=== PATIENT | female | born 1995 | race Caucasian/White ===

== ENCOUNTER 2019-01-29 18:20 | Inpatient (IN) | payer OTHER, MEDICAID ==
[2019-01-29 22:58] LABS: ADD UMIC YES; UR ASCORBIC ACID NEGATIVE (NEGATIVE); UR BACTERIA FEW /HPF (NONE SEEN); UR BILIRUBIN (Dip) NEGATIVE (NEGATIVE); UR BLOOD (Dip) NEGATIVE (NEGATIVE); UR CALCIUM OXALATE CRYSTAL FEW /HPF (NONE SEEN); UR CLARITY SLIGHTLY CLOUDY (CLEAR); UR COLOR AMBER (YELLOW); UR GLUCOSE (Dip) NEGATIVE (NEGATIVE); UR KETONES (Dip) NEGATIVE (NEGATIVE); UR LEUKOCYTE ESTERASE (Dip) NEGATIVE Leu/ul (NEGATIVE); UR MUCUS MANY /HPF (NONE SEEN); UR NITRITE (Dip) NEGATIVE (NEGATIVE); UR RBC 5 /HPF (0-5); UR SPECIFIC GRAVITY (Dip) 1.026 (1.003-1.030); UR SQUAMOUS EPITHELIAL CELL FEW /HPF (FEW); UR TOTAL PROTEIN (Dip) 1+ mg/dl (NEGATIVE); UR UROBILINOGEN (Dip) NEGATIVE (NEGATIVE); UR WBC 3 /HPF (0-5)
[2019-01-30] MEDS: LACTATED RINGER'S 1,000 ML IV ×4 (01:03→19:06)
[2019-01-30] MEDS: CEFAZOLIN 2 GM/50 ML (PMX) 50 ML IVPB (01:04)
[2019-01-30] MEDS: BETAMET NA PHOS/AC(6 MG/ML) 2 ML INJ SYG IM (02:06)
[2019-01-30] MEDS ORDERED: AL HYDROX/MG HYDROX/SIMETH 30 ML CUP PO (03:00)
[2019-01-30] MEDS: NIFEdipine 10 MG CAP PO ×5 (03:21→22:11)
[2019-01-30 07:35] LABS: ADD MAN DIFF? NO
[2019-01-30 07:40] LABS: BASOPHILS % 0.2 % (0.0-2.0); HEMATOCRIT 27.1 % (37.0-47.0); HEMOGLOBIN 9.1 g/dl (12.0-16.0); LYMPHOCYTES # 1.1 10^3/ul (0.8-2.9); LYMPHOCYTES % 8.7 % (15.0-51.0); MEAN CORPUSCULAR HEMOGLOBIN 25.7 pg (29.0-33.0); MEAN CORPUSCULAR HGB CONC 33.6 g/dl (32.0-37.0); MEAN CORPUSCULAR VOLUME 76.6 fl (82.0-101.0); MEAN PLATELET VOLUME 11.2 fl (7.4-10.4); MONOCYTE # 0.3 10^3/ul (0.3-0.9); MONOCYTES % 2.1 % (0.0-11.0); NEUTROPHIL # 11.6 10^3/ul (1.6-7.5); NEUTROPHILS % 88.2 % (39.0-77.0); PLATELET COUNT 221 10^3/UL (140-415); RED BLOOD COUNT 3.54 10^6/ul (4.20-5.40); RED CELL DISTRIBUTION WIDTH 13.2 % (11.5-14.5)
[2019-01-30 07:40] LABS: WHITE BLOOD COUNT 13.1 10^3/ul (4.8-10.8)
[2019-01-30 08:00] LABS: GLUCOSE 116 mg/dl (70-220)
[2019-01-30] MEDS: INSULIN ASPART [NOVOLOG] 3 ML PEN SC ×2 (12:00→22:03)
[2019-01-30] MEDS ORDERED: DEXTROSE 50% 50 ML SYRINGE IV ×2 (17:00)
[2019-01-30] MEDS ORDERED: GLUCOSE GEL 15 GRAM TUBE PO ×2 (17:00)
[2019-01-30] MEDS ORDERED: GLUCAGON 1 MG INJ IM (17:00)
[2019-01-30] MEDS ORDERED: GLUCOSE GEL 15 GRAM TUBE BUCCAL (17:00)
[2019-01-30] MEDS: ACETAMINOPHEN 325 MG TAB PO (21:04)
[2019-01-31] MEDS: NIFEdipine 10 MG CAP PO ×3 (01:00→11:55)
[2019-01-31] MEDS: BETAMET NA PHOS/AC(6 MG/ML) 2 ML INJ SYG IM (02:17)
[2019-01-31] MEDS: LACTATED RINGER'S 1,000 ML IV ×2 (03:06→11:59)
[2019-01-31] MEDS: INSULIN ASPART [NOVOLOG] 3 ML PEN SC ×3 (11:58→20:19)
[2019-01-31] MEDS: MAGNESIUM SULFATE 20 GM/500 ML 500 ML IV (16:12)
[2019-02-01] MEDS: LACTATED RINGER'S 1,000 ML IV ×2 (00:10→10:19)
[2019-02-01 00:54] LABS: MAGNESIUM 4.6 mg/dl (1.7-2.5)
[2019-02-01] MEDS: MAGNESIUM SULFATE 20 GM/500 ML 500 ML IV ×2 (04:29→13:30)
[2019-02-01 08:14] LABS: MAGNESIUM 4.4 mg/dl (1.7-2.5)
[2019-02-01] MEDS: INSULIN ASPART [NOVOLOG] 3 ML PEN SC ×3 (11:50→20:30)
[2019-02-01 13:00] LABS: MAGNESIUM 5.1 mg/dl (1.7-2.5)
== END 2019-02-02 14:29 | disposition home or self-care (01) | DRG 832 ==
LOC: OBT 18:20 → L-D 01-30 01:31 → PP1 01-31 16:05 → L-D 19:35 → OBT 23:25 → L-D 23:25
DX: O24.419 Gestational diabetes mellitus in pregnancy, unspecified control (principal); O26.873 Cervical shortening, third trimester; O30.003 Twin pregnancy, unspecified number of placenta and unspecified number of amniotic sacs, third trimester; O99.013 Anemia complicating pregnancy, third trimester; Z3A.33 33 weeks gestation of pregnancy
CPT/HCPCS: 76815; 76817; 76818; 81001; 82947; 82962; 83735; 85025; 86850; 86900; 86901; 87086

== ENCOUNTER 2019-02-12 18:38 | Inpatient (IN) | payer OTHER ==
[2019-02-12 23:00] LABS: ADD UMIC YES; UR ASCORBIC ACID NEGATIVE (NEGATIVE); UR BACTERIA FEW /HPF (NONE SEEN); UR BILIRUBIN (Dip) NEGATIVE (NEGATIVE); UR BLOOD (Dip) NEGATIVE (NEGATIVE); UR CLARITY SLIGHTLY CLOUDY (CLEAR); UR COLOR AMBER (YELLOW); UR GLUCOSE (Dip) NEGATIVE (NEGATIVE); UR KETONES (Dip) NEGATIVE (NEGATIVE); UR LEUKOCYTE ESTERASE (Dip) 1+ Leu/ul (NEGATIVE); UR MUCUS MANY /HPF (NONE SEEN); UR NITRITE (Dip) NEGATIVE (NEGATIVE); UR RBC 3 /HPF (0-5); UR SPECIFIC GRAVITY (Dip) 1.023 (1.003-1.030); UR SQUAMOUS EPITHELIAL CELL FEW /HPF (FEW); UR TOTAL PROTEIN (Dip) 1+ mg/dl (NEGATIVE); UR UROBILINOGEN (Dip) 1+ mg/dL (NEGATIVE); UR WBC 5 /HPF (0-5)
[2019-02-13] MEDS: LACTATED RINGER'S 1,000 ML IV ×2 (02:25→07:33)
[2019-02-13 03:25] LABS: ADD MAN DIFF? NO
[2019-02-13 03:28] LABS: BASOPHILS % 0.3 % (0.0-2.0); EOSINOPHILS # 0.1 10^3/ul (0.0-0.5); LYMPHOCYTES # 2.1 10^3/ul (0.8-2.9); LYMPHOCYTES % 22.3 % (15.0-51.0); MEAN CORPUSCULAR HEMOGLOBIN 24.8 pg (29.0-33.0); MEAN CORPUSCULAR HGB CONC 32.1 g/dl (32.0-37.0); MEAN CORPUSCULAR VOLUME 77.1 fl (82.0-101.0); MEAN PLATELET VOLUME 11.7 fl (7.4-10.4); MONOCYTE # 0.7 10^3/ul (0.3-0.9); MONOCYTES % 7.4 % (0.0-11.0); NEUTROPHIL # 6.3 10^3/ul (1.6-7.5); NEUTROPHILS % 68.1 % (39.0-77.0); PLATELET COUNT 207 10^3/UL (140-415); RED BLOOD COUNT 3.63 10^6/ul (4.20-5.40)
[2019-02-13 03:28] LABS: WHITE BLOOD COUNT 9.3 10^3/ul (4.8-10.8)
[2019-02-13 03:48] LABS: PROTIME 12.3 Sec (11.9-14.9)
[2019-02-13 03:49] LABS: PARTIAL THROMBOPLASTIN TIME 29.7 Sec (23.0-35.0)
[2019-02-13] MEDS ORDERED: ACCU-CHEK XX (06:00)
[2019-02-13] MEDS ORDERED: PRENATAL VITAMIN PO (09:00)
[2019-02-13 22:04] LABS: RAPID PLASMA REAGIN NONREACTIVE (NR)
== END 2019-02-13 16:11 | disposition home or self-care (01) | DRG 833 ==
LOC: OBT 18:38 → L-D 18:42 → PP1 02-13 11:23 → L-D 19:34
DX: O60.03 Preterm labor without delivery, third trimester (principal); Z3A.35 35 weeks gestation of pregnancy; O30.003 Twin pregnancy, unspecified number of placenta and unspecified number of amniotic sacs, third trimester
CPT/HCPCS: 76815; 76818; 81001; 82962; 85025; 85610; 85730; 86592; 86850; 86900; 86901; 87086

== ENCOUNTER 2019-02-16 13:13 | Outpatient (CLI) | payer OTHER | END 2019-02-16 14:55 | disposition home or self-care (01) | LOC: OBT 13:13 → L-D 13:13 → OBT 14:55 | DX: O30.003 Twin pregnancy, unspecified number of placenta and unspecified number of amniotic sacs, third trimester (principal); O24.419 Gestational diabetes mellitus in pregnancy, unspecified control; Z3A.35 35 weeks gestation of pregnancy | CPT/HCPCS: 76818 ==

== ENCOUNTER 2019-02-19 13:10 | Outpatient (CLI) | payer OTHER | END 2019-02-19 16:05 | disposition home or self-care (01) | LOC: OBT 13:10 → L-D 13:11 → OBT 16:05 | DX: O24.419 Gestational diabetes mellitus in pregnancy, unspecified control (principal); Z3A.36 36 weeks gestation of pregnancy | CPT/HCPCS: 76818 ==

== ENCOUNTER 2019-02-24 14:19 | Outpatient (CLI) | payer OTHER | END 2019-02-24 15:50 | disposition home or self-care (01) | LOC: OBT 14:19 → L-D 14:20 → OBT 15:50 | DX: O30.033 Twin pregnancy, monochorionic/diamniotic, third trimester (principal); Z3A.36 36 weeks gestation of pregnancy | CPT/HCPCS: 76818 ==

== ENCOUNTER 2019-02-26 05:12 | Inpatient (IN) | payer OTHER ==
[2019-02-26] MEDS ORDERED: OXYTOCIN 30 UNITS/LR 500 ML IV ×2 (05:30→10:00)
[2019-02-26] MEDS ORDERED: MISOPROSTOL 200 MCG TAB PR ×2 (05:30→10:00)
[2019-02-26] MEDS ORDERED: METHYLERGONOVINE 0.2 MG INJ IM ×2 (05:30→10:00)
[2019-02-26] MEDS ORDERED: CARBOPROST 250 MCG INJ IM ×2 (05:30→10:00)
[2019-02-26 05:53] LABS: ADD MAN DIFF? NO
[2019-02-26 05:59] LABS: BASOPHIL # 0.1 10^3/ul (0.0-0.1); BASOPHILS % 0.6 % (0.0-2.0); EOSINOPHILS # 0.1 10^3/ul (0.0-0.5); EOSINOPHILS % 0.6 % (0.0-7.0); HEMATOCRIT 29.8 % (37.0-47.0); HEMOGLOBIN 9.7 g/dl (12.0-16.0); LYMPHOCYTES # 2.6 10^3/ul (0.8-2.9); MEAN CORPUSCULAR HEMOGLOBIN 24.6 pg (29.0-33.0); MEAN CORPUSCULAR HGB CONC 32.6 g/dl (32.0-37.0); MEAN CORPUSCULAR VOLUME 75.4 fl (82.0-101.0); MEAN PLATELET VOLUME 11.3 fl (7.4-10.4); MONOCYTE # 0.7 10^3/ul (0.3-0.9); MONOCYTES % 7.4 % (0.0-11.0); NEUTROPHIL # 6.4 10^3/ul (1.6-7.5); NEUTROPHILS % 64.4 % (39.0-77.0); PLATELET COUNT 258 10^3/UL (140-415); RED BLOOD COUNT 3.95 10^6/ul (4.20-5.40); RED CELL DISTRIBUTION WIDTH 14.5 % (11.5-14.5)
[2019-02-26] MEDS: LACTATED RINGER'S 1,000 ML IV ×3 (06:05→23:04)
[2019-02-26 06:17] LABS: INR 0.89; PROTIME 12.1 Sec (11.9-14.9); PT RATIO 0.9
[2019-02-26 06:18] LABS: PARTIAL THROMBOPLASTIN TIME 31.5 Sec (23.0-35.0)
[2019-02-26 06:18] LABS: GLUCOSE 86 mg/dl (70-220)
[2019-02-26] MEDS ORDERED: morphine SULFATE/PF (10 MG/10 ML) INJ (07:30)
[2019-02-26] MEDS ORDERED: ONDANSETRON 4 MG INJ (07:30)
[2019-02-26] MEDS ORDERED: OXYTOCIN 10 UNIT INJ (07:30)
[2019-02-26] MEDS ORDERED: PHENYLephrine 10 MG INJ (07:51)
[2019-02-26] MEDS ORDERED: METOCLOPRAMIDE 10 MG INJ (08:23)
[2019-02-26] MEDS ORDERED: morphine 2 MG INJ IV (09:00)
[2019-02-26] MEDS ORDERED: ONDANSETRON 4 MG INJ IV (09:00)
[2019-02-26] MEDS ORDERED: NALOXONE (0.4 MG/ML) INJ IV (09:00)
[2019-02-26] MEDS ORDERED: KETOROLAC 30 MG INJ IV (09:00)
[2019-02-26] MEDS ORDERED: DIPHENHYDRAMINE 50 MG INJ IV (09:00)
[2019-02-26] MEDS: OXYTOCIN 30 UNITS/LR 500 ML IV ×2 (09:57→14:02)
[2019-02-26] MEDS ORDERED: NACL 0.9% 3 ML SYG IV (10:00)
[2019-02-26] MEDS ORDERED: NA PHOSPHATE/BIPHOS 133 ML ENEMA PR (10:00)
[2019-02-26] MEDS: CEFAZOLIN 2 GM/50 ML (PMX) 50 ML IVPB (12:29)
[2019-02-26] MEDS: AZITHROMYCIN 500MG/NS (PMX) 250 ML IV (12:29)
[2019-02-26] MEDS: IBUPROFEN 600 MG TAB PO ×2 (13:50→18:00)
[2019-02-26 16:16] LABS: RAPID PLASMA REAGIN NONREACTIVE (NR)
[2019-02-27] MEDS: LACTATED RINGER'S 1,000 ML IV ×3 (05:17→21:17)
[2019-02-27] MEDS: IBUPROFEN 600 MG TAB PO ×4 (06:00→17:55)
[2019-02-27] MEDS ORDERED: OXYCODONE/ACETAMINOPHEN (5/325) TAB PO ×2 (08:00)
[2019-02-27 08:29] LABS: ADD MAN DIFF? NO
[2019-02-27 08:37] LABS: WHITE BLOOD COUNT 11.2 10^3/ul (4.8-10.8)
[2019-02-27 08:37] LABS: BASOPHILS % 0.3 % (0.0-2.0); EOSINOPHILS % 0.3 % (0.0-7.0); HEMATOCRIT 24.5 % (37.0-47.0); HEMOGLOBIN 7.8 g/dl (12.0-16.0); LYMPHOCYTES # 1.6 10^3/ul (0.8-2.9); LYMPHOCYTES % 14.1 % (15.0-51.0); MEAN CORPUSCULAR HEMOGLOBIN 24.1 pg (29.0-33.0); MEAN CORPUSCULAR HGB CONC 31.8 g/dl (32.0-37.0); MEAN CORPUSCULAR VOLUME 75.9 fl (82.0-101.0); MEAN PLATELET VOLUME 11.3 fl (7.4-10.4); MONOCYTE # 0.9 10^3/ul (0.3-0.9); MONOCYTES % 7.9 % (0.0-11.0); NEUTROPHIL # 8.6 10^3/ul (1.6-7.5); NEUTROPHILS % 76.6 % (39.0-77.0); PLATELET COUNT 216 10^3/UL (140-415); RED BLOOD COUNT 3.23 10^6/ul (4.20-5.40); RED CELL DISTRIBUTION WIDTH 14.6 % (11.5-14.5)
[2019-02-27] MEDS: ASCORBIC ACID 500 MG TAB PO ×2 (10:09→21:55)
[2019-02-27] MEDS: FERROUS SULFATE (EC) 325 MG TAB PO ×2 (10:10→21:55)
[2019-02-28] MEDS: IBUPROFEN 600 MG TAB PO ×5 (00:44→23:35)
[2019-02-28] MEDS: LACTATED RINGER'S 1,000 ML IV ×2 (05:17→13:17)
[2019-02-28] MEDS: FERROUS SULFATE (EC) 325 MG TAB PO ×2 (09:16→20:33)
[2019-02-28] MEDS: ASCORBIC ACID 500 MG TAB PO ×2 (09:16→20:33)
[2019-03-01] MEDS: IBUPROFEN 600 MG TAB PO ×2 (05:32→12:04)
[2019-03-01] MEDS: DIPHTH/TET/ACEL PERTUSS (ADULT) 0.5 ML VIAL IM* (07:48)
[2019-03-01] MEDS: FERROUS SULFATE (EC) 325 MG TAB PO (08:59)
[2019-03-01] MEDS: LANOLIN HPA 1 PKT TOP (08:59)
[2019-03-01] MEDS: ASCORBIC ACID 500 MG TAB PO (08:59)
[2019-03-01] MEDS: MEASLES,MUMPS,RUBELLA VACCINE INJ SC* (09:53)
== END 2019-03-01 15:36 | disposition home or self-care (01) | DRG 785 ==
LOC: L-D 05:12 → PP1 13:54
PROVIDERS: Obstetrics & Gynecology
PROC: 10D00Z1 Extraction of Products of Conception, Low, Open Approach (ICD-10-PCS; principal; 2019-02-26)
PROC: 0UT50ZZ Resection of Right Fallopian Tube, Open Approach (ICD-10-PCS; 2019-02-26)
PROC: 0UB60ZZ Excision of Left Fallopian Tube, Open Approach (ICD-10-PCS; 2019-02-26)
DX: O60.14X2 Preterm labor third trimester with preterm delivery third trimester, fetus 2 (principal); O60.14X1 Preterm labor third trimester with preterm delivery third trimester, fetus 1; O30.033 Twin pregnancy, monochorionic/diamniotic, third trimester; O69.81X2 Labor and delivery complicated by cord around neck, without compression, fetus 2; O99.214 Obesity complicating childbirth; E66.01 Morbid (severe) obesity due to excess calories; O24.420 Gestational diabetes mellitus in childbirth, diet controlled; Z3A.36 36 weeks gestation of pregnancy; Z37.2 Twins, both liveborn; Z30.2 Encounter for sterilization
CPT/HCPCS: 82947; 82962; 85025; 85610; 85730; 86592; 86850; 86900; 86901; 88302; 88307; 99464